=== PATIENT | male | born 1965 | race Hispanic/Latino ===

== ENCOUNTER → 2017-01-16 | Outpatient (CLI) | payer BC | END | disposition home or self-care (01) | LOC: GMAM 10:36 | PROVIDERS: ATTEND Family Medicine | DX: Z12.5 Encounter for screening for malignant neoplasm of prostate (principal) ==

== ENCOUNTER → 2017-01-21 | Outpatient (CLI) | payer BC | END | disposition home or self-care (01) | LOC: GMAM 17:18 | PROVIDERS: ATTEND Family Medicine | DX: G72.9 Myopathy, unspecified (principal) ==

== ENCOUNTER → 2017-05-06 | Outpatient (CLI) | payer BC | END | disposition home or self-care (01) | LOC: GMAM 10:12 | PROVIDERS: ATTEND Family Medicine | DX: E55.9 Vitamin D deficiency, unspecified (principal) ==

== ENCOUNTER → 2017-09-01 | Outpatient (CLI) | payer BC | END | disposition home or self-care (01) | LOC: GMAM 10:29 | PROVIDERS: ATTEND Family Medicine | DX: E55.9 Vitamin D deficiency, unspecified (principal) ==

== ENCOUNTER → 2017-12-21 | Outpatient (CLI) | payer BC | LOC: GMAM 10:38 | PROVIDERS: ATTEND Family Medicine | DX: E55.9 Vitamin D deficiency, unspecified (principal) ==

== ENCOUNTER → 2018-06-10 | Outpatient (CLI) | payer BC | LOC: GMAM 10:43 | PROVIDERS: ATTEND Family Medicine | DX: E55.9 Vitamin D deficiency, unspecified (principal); Z12.5 Encounter for screening for malignant neoplasm of prostate ==

== ENCOUNTER → 2018-11-23 | Outpatient (CLI) | payer BC | LOC: GMAM 10:35 | PROVIDERS: ATTEND Family Medicine | DX: E55.9 Vitamin D deficiency, unspecified (principal) ==

== ENCOUNTER → 2019-05-09 | Outpatient (CLI) | payer BC | LOC: GMAM 10:35 | PROVIDERS: ATTEND Family Medicine | DX: E55.9 Vitamin D deficiency, unspecified (principal); E11.9 Type 2 diabetes mellitus without complications; E78.2 Mixed hyperlipidemia ==